=== PATIENT | female | born 1995 | race Caucasian/White ===

== ENCOUNTER 2021-06-01 21:58 | Emergency (ER) | payer OTHER, MEDICAID ==
[~2021-06-01] VITALS: Ht 160 cm; Wt 45.4 kg
[2021-06-01 22:11] VITALS: BP_SYST 107
--- NOTE | 2021-06-01 22:11 | NUR ---
PT TRIAGED AND PLACED IN WAITING ROOM. URINE SPECIMEN COLLECTED AND SENT TO LAB FOR ANALYSIS. VSS. NO VISIBLE STRESS AT THIS TIME.
[2021-06-01 23:09] LABS: BILIRUBIN,URINE NEGATIVE (NEGATIVE); BLOOD, URINE 3+ (NEGATIVE); CLARITY/URINE CLOUDY (CLEAR); COLOR,URINE RED (YELLOW); GLUCOSE,URINE NEGATIVE (NEGATIVE); KETONES,URINE TRACE (NEGATIVE); LEUKOCYTE ESTERASE ,URINE 1+ (NEGATIVE); NITRITE, URINE NEGATIVE (NEGATIVE); PH,URINE 6.5 (5.0-8.0); PROTEIN URINE 3+ (NEGATIVE); UROBILINOGEN,URINE 0.2 (0.2-1.0)
[2021-06-01 23:28] LABS: RBC,URINE >100 /HPF (0-3)
[2021-06-01 23:29] LABS: BACTERIA,URINE FEW /HPF (None Seen)
--- NOTE | 2021-06-02 00:03 | NUR ---
Patient to ER bed 3 to gown for evaluation. Side rails up. Report given to Ellyn CARLIN.
--- NOTE | 2021-06-02 00:30 | NUR ---
Pt laying in gurney, awake and alert. Pt denies any pain at the moment, but c/o hematuria. VS WNL.
[2021-06-02 00:46] VITALS: BP_SYST 107
--- NOTE | 2021-06-02 01:40 | NUR ---
Dr. Burroughs at the bedside evaluating pt and discussing plan of care.
[2021-06-02 01:41] LABS: HCG,QUAL RESULT NEGATIVE (NEGATIVE)
[2021-06-02] MEDS ORDERED: CEPH250C PO (01:52)
--- NOTE | 2021-06-02 02:00 | NUR ---
Patient given written and verbal discharge instructions and verbalizes understanding. ER MD discussed with patient the results and treatment provided. Patient in stable condition. ID arm band removed. IV catheter removed intact and dressing applied, no active bleeding. Rx given. Patient educated on pain management and to follow up with PMD. Pain Scale 0/10. Opportunity for questions provided and answered. Medication side effect fact sheet provided.
== END 2021-06-02 02:03 | disposition home or self-care (01) ==
LOC: SED 21:58
DX: N39.0 Urinary tract infection, site not specified (principal); R31.9 Hematuria, unspecified; Z79.899 Other long term (current) drug therapy
CPT/HCPCS: 81000; 84703; 87086; 99283

== ENCOUNTER 2023-10-17 18:47 | Emergency (ER) | payer MEDICARE, OTHER ==
[~2023-10-17] VITALS: Ht 162.6 cm; Wt 49.9 kg
[~2023-10-17 18:47] MED LIST: CEPH250C PO
[2023-10-17 19:03] VITALS: PULSE 107; RESP 16; TEMP 99.2; O2SAT 100
[2023-10-17] MEDS ORDERED: TETRACAINE HCL/PF 0.5% OPHTHALMIC DROPS 4 ML OP ONE (21:15)
[2023-10-17] MEDS ORDERED: NAPH15DR52 LEFT EYE (21:45)
[2023-10-17] MEDS ORDERED: GENT5DRO7 LEFT EYE (21:45)
[2023-10-17 21:52] VITALS: BP_SYST 117; PULSE 90; RESP 16; TEMP 98.6; O2SAT 98
== END 2023-10-17 21:52 | disposition home or self-care (01) ==
LOC: SED 18:47
DX: H57.89 Other specified disorders of eye and adnexa (principal); Z79.899 Other long term (current) drug therapy
CPT/HCPCS: 99284